=== PATIENT | male | born 1985 | race Caucasian/White ===

== ENCOUNTER 2024-07-14 11:57 | Outpatient (AMB) | payer OTHER, SELFPAY ==
--- NOTE | 2024-07-14 12:34 | AM.OFFWIN_ITS ---
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 He states that yesterday he put a new monitor on his right upper arm, and within the first hour, it was malfunctioning and not providing readings. His carlita recommended removing the monitor, which he did. Upon removing it, he noticed that the small flexible probe appeared much shorter than it should, about 3 mm shorter. He is unsure if this piece of the monitor remains in his arm. He states he can feel a small bump, but is unsure if this is related. This BG monitoring system is new for him. PCP at [facility]. [facility] Social History Patient Tobacco Use Status: Never used Tobacco Review of Systems Const All systems reviewed & are unremarkable except as noted in HPI and below Physical Exam Vital Signs: Last Vital Signs Pulse 100 07/14/24 12:40 BP 124/80 07/14/24 12:40 Pulse Ox 99 07/14/24 12:40 Oxygen Delivery Method Room Air 07/14/24 12:40 Const General: cooperative, healthy appearing, comfortable and no acute distress Limitations: no limitations HEENT Head: Yes normal to inspection Resp Effort & Inspection: normal respiratory effort Skin Other: Very small erythematous area where previous Dexcom monitor was placed, right posterior upper arm. Area palpated and no linear foreign body was identified. No surrounding warmth, erythema, rashes, or swelling. Extrem General: Yes capillary refill normal and Yes no clubbing, cyanosis or edema Psych Appearance: grossly normal Mental Status: mental status grossly normal Speech and movement: Normal speech and movement present Assessment & Plan Assessment & Plan (1) Foreign body (FB) in soft tissue: Code(s): M79.5 - Residual foreign body in soft tissue Plan: I cannot palpate the foreign body in his arm where his Dexcom had been placed. Patient is unsure if the small piece/probe from the monitor was left in skin or if it perhaps fell out. We discussed monitoring the area for infection, and if anything concerning such as pain, redness, warmth, or swelling develop, he may need abx and possible US. He will d/w his PCP as needed. All questions were answered and patient verbalizes understanding and agrees to plan. Coding Level of Care Code Est Pt Level 3 (81499) Diagnoses Foreign body (FB) in soft tissue M79.5
[2024-07-14 12:40] VITALS: BP 124/80; PULSE 100; O2SAT 99
--- OUTSIDE RECORDS SUMMARY | 2024-07-14 13:02 | XMS_ITS | Clinical Summary ---
Author Organization [facility] Address [address] [place] [address] Care Team Providers Care Gis Professor Name Role Phone Unavailable Primary Care Provider Unavailabl e Social History Tobacco Use Types Packs/Day Years Used Date Smoking Tobacco: Never Assessed Sex and Gender Information Value Date Recorded Sex Assigned at Not on file Legal Sex Male 4:22 PM EDT Gender Identity Not on file Sexual Orientation Not on file Plan of Treatment Health Maintenance Due Date Last Done Comments Hepatitis C Virus Screening 1986 HIV Screening 09/26/1999 DTaP/Tdap/Td Vaccines (1 - Tdap) 2005 Hepatitis B Vaccines (1 of 3 - 19+ 3-dose series) 2005 COVID-19 Vaccine (2023-2 5 season) 2023 HPV Vaccines Aged Out No longer eligi ble based on patient's age to complete this topic Pneumococcal Vaccine: Pediat jessica (0-5 Years) and At-Risk Patients (6 to 49 Years) Aged Out No longer eligible b ased on patient's age to complete this topic
--- OUTSIDE RECORDS SUMMARY | 2024-07-14 13:02 | XMS_ITS | Encounter Summary ---
Author Organization [employer] Address [address] [facility] 7 [place] [address] Care Team Providers Care Hospital Laboratory Technician Name Role Phone Unavailable Primary Care Provider Unavailabl e Encounter Details Date Type Department Care Team (Latest Contact Info) Description 09/10/2018 [facility] Dental, Provider, DDS Social History Tobacco Use Types Packs/Day Years Used Date Smoking Tobacco: Never Assessed Comments Unknown Sex and Gender Information Value Date Recorded Sex Assigned at Not on file Legal Sex Unknown 12/27/2021 5:37 PM EDT Gender Identity Not on file Sexual Orientation Not on file documented as of this encounter Plan of Treatment Not on file documented as of this encounter Visit Diagnoses Not on filedocumented in this encounter
--- OUTSIDE RECORDS SUMMARY | 2024-07-14 13:02 | XMS_ITS | Encounter Summary ---
Author Organization [employer] Address [address] [facility] [address] [place] [address] Care Team Providers Care Rehabilitation Manager Name Role Phone Unavailable Primary Care Provider Unavailabl e Encounter Details Date Type Department Care Team (Latest Contact Info) Description 03/16/2019 [facility] Dental, Provider, DDS Social [...]
--- OUTSIDE RECORDS SUMMARY | 2024-07-14 13:02 | XMS_ITS | Encounter Summary ---
Author Organization [employer] Address [address] [facility] [address] [place] [address] Care Team Providers Care Assistant Chief Nursing Officer Name Role Phone Unavailable Primary Care Provider Unavailabl e Encounter Details Date Type Department Care Team (Latest Contact Info) Description 03/24/2018 [facility] Dental, Provider, DDS Social [...]
--- OUTSIDE RECORDS SUMMARY | 2024-07-14 13:02 | XMS_ITS | Clinical Summary ---
Author Organization [employer] Address [address] [facility] 7t [place] [address] Care Team Providers Care Sealer Aircraft Name Role Phone Unavailable Primary Care Provider [...] Health Maintenance Due Date Last Done Comments Depression Screening 1986 Lipid Panel 1986 Alcohol/Substance Use Screening 1998 Tobacco Screening 1998 Family Planning (PISQ) 2001 DTaP/Tdap/Td Vaccines (1 - Tdap) 2005 Hepatitis B Vaccines (1 of 3 - 19+ 3-dose series) 2005 Pap Smear 09/26/2007 Cervical Cancer Screening 2016 HPV/Cotest 2016 COVID-19 Vaccine ( - 2023-2 5 season) 2023 Influenza Vaccine (#1) 2023 Zoster Vaccines (1 of 2) 2036 RSV Patients and Pa tients Aged 60 years or older (1 - 1-dose 75+ series) 2061 HIB Vaccines Aged Out No longer eligi ble based on patient's age to complete this topic HPV Vaccines Aged Out No longer eligi ble based on patient's age to complete this topic Hepatitis A Vaccines Aged Out No long er eligible based on patient's age to complete this topic IPV Vaccines Aged Out No longer eligi ble based on patient's age to complete this topic Meningococcal B Vaccine Aged Out No l onger eligible based on patient's age to complete this topic Meningococcal Vaccine Aged Out No fran kieran eligible based on patient's age to complete this topic Pneumococcal Vaccine: Pediat rics (0 to 5 Years) and At-Risk Patients (6 to 49) Years) Aged Out No longer eligible b ased on patient's age to complete this topic RSV under 20 months Aged Out No longe r eligible based on patient's age to complete this topic Rotavirus Vaccines Aged Out No longer eligible based on patient's age to complete this topic
== END 2024-07-14 13:13 | disposition home or self-care (01) ==
PROVIDERS: Visit Provider Nurse Practitioner Family
DX: M79.5 Residual foreign body in soft tissue (principal)

== ENCOUNTER → 2024-07-14 11:57 | Outpatient (BNVA) | payer OTHER, SELFPAY | DX: Z13.89 Encounter for screening for other disorder (principal) ==

== ENCOUNTER 2024-10-08 10:15 | Outpatient (AMB) | payer OTHER, SELFPAY ==
--- NOTE | 2024-10-08 10:22 | MHC.OFFVIS ---
Intake Visit Reasons: peyronies Intake Note: PT PRESENTS FOR: NEW PT PEYRONIES UROLOGY MEDICATIONS: TESTOSTERONE BLOOD THINNERS: NONE Aquarist Required: No Accompanied by: Self / Same As Patient Allergies No Known Allergies Allergy (Verified 10/08/24 10:23) PFSH Social History Patient Tobacco Use Status: Never used Tobacco Results AMB Urinalysis, Automated UA Leukoctes 0 Radha/uL Last Edit by LUIS CARLOS Sorensen on 10/08/24 10:33 UA Nitrite Negative Last Edit by Meredith Saini [facility] on 10/08/24 10:33 UA Urobilinogen 1 mg/dL Last Edit by Meredith Saini [facility] on 10/08/24 10:33 UA Protein 15 mg/dL Last Edit by Meredith Saini [facility] on 10/08/24 10:33 UA pH 6.0 Last Edit by Meredith Saini [facility] on 10/08/24 10:33 UA Blood 0 James/uL Last Edit by Meredith Saini [facility] on 10/08/24 10:33 UA Specific [place] 1.025 Last Edit by Meredith Saini [facility] on 10/08/24 10:33 UA Ketone Negative Last Edit by Meredith Saini [facility] on 10/08/24 10:33 UA Bilirubin 0 mg/dL Last Edit by Meredith Saini [facility] on 10/08/24 10:33 UA Glucose 0 mg/dL Last Edit by Meredith Saini [facility] on 10/08/24 10:33 Results Reviewed Results Reviewed: Laboratory Last Values Urine pH (Auto) 6.0 10/08/24 10:32 Specific [place] (Auto) 1.025 10/08/24 10:32 Urine Protein (Auto) 15 mg/dL 10/08/24 10:32 Glucose (UA)(Auto) 0 mg/dL 10/08/24 10:32 Urine Ketones (Auto) Negative 10/08/24 10:32 Urine Blood (Auto) 0 James/uL 10/08/24 10:32 Urine Nitrite (Auto) Negative 10/08/24 10:32 Urine Bilirubin (Auto) 0 mg/dL 10/08/24 10:32 Urine Urobilinogen (Auto) 1 mg/dL 10/08/24 10:32 Leukocyte Esterase (Auto) 0 Radha/uL 10/08/24 10:32 Assessment & Plan Assessment & Plan (1) Peyronie's disease: Code(s): N48.6 - Induration penis plastica Category: Medical Orders: Orders AMB Urinalysis Automated Today Z13.9 - Encounter for screening, unspecified Estrad Free (Tot Ultra + Free) Today N48.6 - Induration penis plastica Lutenizing Hormone Today N48.6 - Induration penis plastica Testosterone, Free/Total Today N48.6 - Induration penis plastica Follicle Stimulating Hormone Today N48.6 - Induration penis plastica US penile Today N48.6 - Induration penis plastica Medications: New tadalafil 5 mg PO DAILY 90 tabs 0RF sexual activity 90 days N48.6 - Induration penis plastica pentoxifylline ER 400 mg PO BID 180 tabs 1RF 90 days N48.6 - Induration penis plastica vitamin E (dl, acetate) 450 mg PO DAILY 90 caps 1RF 90 days N48.6 - Induration penis plastica Coding Diagnoses Peyronie's disease N48.6
--- OUTSIDE RECORDS SUMMARY | 2024-10-08 10:26 | XMS_ITS | Clinical Summary ---
Author Organization [employer] Address [address] [facility] 7t [place] [address] Care Team Providers Care Corporate Development Manager Name Role Phone Unavailable Primary Care [...] Comments Depression Screening 1986 Lipid Panel 1986 Disability Screening 1986 Alcohol/Substance Use Screening 1998 Tobacco Screening 1998 Family Planning (PISQ) 2001 HPV Vaccines (1 - 3-dose series) 2001 DTaP/Tdap/Td Vaccines (1 - Tdap) 2005 Hepatitis B Vaccines (1 of 3 - 19+ 3-dose series) 2005 Pap Smear 09/26/2007 Cervical Cancer Screening 2016 HPV/Cotest 2016 COVID-19 Vaccine ( - 2023-2 5 season) 2023 Influenza Vaccine (#1) 2024 Zoster Vaccines (1 of 2) 2036 RSV [...] Years) and At-Risk Patients (6 to 49) Years Aged Out No longer eligible b ased on patient's age to complete this topic RSV under 20 months Aged Out No longe r eligible based on patient's age to complete this topic Rotavirus Vaccines Aged Out No longer eligible based on patient's age to complete this topic
--- OUTSIDE RECORDS SUMMARY | 2024-10-08 10:26 | XMS_ITS | Clinical Summary ---
Author Organization [facility] Address [address] [place] [address] Care Team Providers Care Police Patrol Lieutenant Name Role Phone Unavailable Primary Care Provider [...] of 3 - 19+ 3-dose series) 2005 HPV Vaccines (1 - 3-dose SCD M series) 2013 COVID-19 Vaccine (2023-2 5 season) 2023 Pneumococcal Vaccine: Pediat jessica (0-5 Years) and At-Risk Patients (6 to 49 Years) Aged Out No longer eligible b ased on patient's age to complete this topic
== END 2024-10-08 11:12 | disposition home or self-care (01) ==
PROVIDERS: PCP Registered Nurse; Visit Provider Urology
DX: Z13.9 Encounter for screening, unspecified (principal)

== ENCOUNTER → 2024-10-08 10:15 | Outpatient (BNVA) | payer OTHER, SELFPAY | PROVIDERS: PCP Registered Nurse; Visit Provider Urology | DX: N48.6 Induration penis plastica (principal) | CPT/HCPCS: 81003 ==

== ENCOUNTER 2024-12-23 13:56 | Outpatient (REF) | payer OTHER, SELFPAY ==
--- OUTSIDE RECORDS SUMMARY | 2024-12-23 17:00 | XMS_ITS | Encounter Summary ---
Author Organization [employer] Address [address] [facility] [address] [place] [address] Care Team Providers Care Lining Mechanic Name Role Phone Unavailable Primary Care Provider [...]
--- OUTSIDE RECORDS SUMMARY | 2024-12-23 17:00 | XMS_ITS | Clinical Summary ---
Author Organization [employer] Address [address] [facility] [address]t [place] [address] Care Team Providers Care Supervisor Electrolytic Tinning Name Role Phone Unavailable Primary Care Provider [...] Cancer Screening 2016 HPV/Cotest 2016 COVID-19 Vaccine (1 - 2023-2 5 season) 2024 Influenza Vaccine (#1) 2024 Zoster Vaccines (1 [...]
--- OUTSIDE RECORDS SUMMARY | 2024-12-23 17:00 | XMS_ITS | Encounter Summary ---
Author Organization [employer] Address [address] [facility] [address] [place] [address] Care Team Providers Care Flume Tender Name Role Phone Unavailable Primary Care Provider [...]
--- OUTSIDE RECORDS SUMMARY | 2024-12-23 17:00 | XMS_ITS | Encounter Summary ---
Author Organization [employer] Address [address] [facility] [address] [place] [address] Care Team Providers Care Ply Cutter Name Role Phone Unavailable Primary Care Provider [...]
--- OUTSIDE RECORDS SUMMARY | 2024-12-23 17:00 | XMS_ITS | Clinical Summary ---
Author Organization [facility] Address [address] [place] [address] Care Team Providers Care Streaming Media Specialist Name Role Phone Unavailable Primary Care Provider [...] series) 2005 COVID-19 Vaccine (2023-2 5 season) 2024 HPV Vaccines (No Doses Required) Completed Pneumococcal Vaccine: Pediat jessica (0-5 Years) and At-Risk Patients (6 to 49 Years) Aged Out No longer eligible b ased on patient's age to complete this topic
[2024-12-24 04:39] LABS: Follicle Stimulating Hormone 10.2 mIU/mL (1.4-12.8)
[2024-12-28 16:58] LABS: Testosterone, Free 117.8 pg/mL (35.0-155.0)
[2025-01-09 03:24] LABS: Estradiol Free 0.79 pg/mL; Estradiol, Ultrasensitive 39 pg/mL (< OR = 29)
== END 2024-12-23 13:57 | disposition home or self-care (01) ==
LOC: HO.LAB 13:56
PROVIDERS: PCP Registered Nurse; Visit Provider Urology
DX: N48.6 Induration penis plastica (principal)
CPT/HCPCS: 36415; 82670; 82681; 83001; 83002; 84402; 84403

== ENCOUNTER 2025-01-03 13:12 | Outpatient (REF) | payer OTHER, SELFPAY ==
--- NOTE | ~2025-01-03 | US_ITS ---
EXAMINATION: US PENIS SOFT TISSUE HISTORY: N48.6 - Induration penis plastica COMPARISON: There are no prior studies available for comparison. TECHNIQUE: Grayscale imaging of the penis. Doppler exam not performed. FINDINGS: No fracture, fluid collection or soft tissue mass appreciated. There are scattered linear bright echogenic densities with acoustic shadowing suggestive of calcifications seen throughout the penis most prominent at the base. US/US penile IMPRESSION: Soft tissue calcifications. Question Peyronie's disease. Electronically signed by: Batsheva Martins MD 01/04/2025 09:21 AM EST
--- OUTSIDE RECORDS SUMMARY | 2025-01-03 15:20 | XMS_ITS | Clinical Summary ---
Author Organization [employer] Address [address] [facility] 7t [place] [address] Care Team Providers Care Vacuum Applicator Operator Name Role Phone Unavailable Primary Care Provider [...]
--- OUTSIDE RECORDS SUMMARY | 2025-01-03 15:20 | XMS_ITS | Encounter Summary ---
Author Organization [employer] Address [address] [facility] [address] [place] [address] Care Team Providers Care Railroad Operating Engineer Name Role Phone Unavailable Primary Care Provider [...]
--- OUTSIDE RECORDS SUMMARY | 2025-01-03 15:20 | XMS_ITS | Encounter Summary ---
Author Organization [email or web address] Address [address] [facility] 7 [place] [address] Care Team Providers Care Well Puller Name Role Phone Unavailable Primary Care Provider [...]
--- OUTSIDE RECORDS SUMMARY | 2025-01-03 15:20 | XMS_ITS | Encounter Summary ---
Author Organization [employer] Address [address] [facility] 7 [place] [address] Care Team Providers Care Knitting Inspector Name Role Phone Unavailable Primary Care Provider [...]
--- OUTSIDE RECORDS SUMMARY | 2025-01-03 15:20 | XMS_ITS | Clinical Summary ---
Author Organization [facility] Address [address] [place] [address] Care Team Providers Care Traffic Control Operator Name Role Phone Unavailable Primary Care [...]
== END 2025-01-03 13:13 | disposition home or self-care (01) ==
LOC: HO.US 13:12
PROVIDERS: PCP Registered Nurse; Visit Provider Urology
DX: N48.6 Induration penis plastica (principal)
CPT/HCPCS: 76857

== ENCOUNTER → 2025-01-03 13:14 | Outpatient (BNV) | payer OTHER, SELFPAY | PROVIDERS: PCP Registered Nurse; Visit Provider Radiology Diagnostic Radiology | DX: N48.6 Induration penis plastica (principal); N48.89 Other specified disorders of penis | CPT/HCPCS: 76857 ==

== ENCOUNTER 2025-01-07 15:02 | Outpatient (AMB) | payer OTHER, SELFPAY ==
--- NOTE | 2025-01-07 15:13 | MHC.OFFVIS ---
Intake Visit Reasons: 3m/US/labs Intake Note: Patient Is Present for Ultrasound/Labs Results Urology Med: Pentoxifylline, Tadalafil, Vitamin E Antibiotic Allergy: None Blood Thinner: None 12/23/2024- Testosterone- 760 LH- 8.4 Penile Vascular Ultrasound- 01/03/25 Decorative Cutting Machine Tender Required: No Allergies No Known Allergies Allergy (Verified 01/07/25 15:15) HPI Comments Details: Silver is a pleasant male. He is a patient of . Seen for the following urologic conditions - Peyronie's disease Has photos Proximally 75 degree dorsal bend Palpable calcification at base of penis Discussed penile plication Normal labs Review in six-month Peyronie's disease Significant penile curvature Has been present for number of years Correlates back to penile trauma On exam has a thickening of the dorsal base that extends significantly down the shaft of the penis Able to obtain erection however has substantial deformity Significant background of diabetes longstanding insulin-dependent Pertinent information regarding Peyronie's disease provided Labs 12/18 T 760, LH 8.4 [facility] Social History Patient Tobacco Use Status: Never used Tobacco Review of Systems Const Denies chills and Denies fever(s) Card Reports no additional complaints and Denies syncope Resp Denies cough GI Denies abdominal pain and Denies heartburn Reports as per HPI and Denies change in libido Neuro Denies syncope Psych Denies change in libido Endo Denies change in libido Physical Exam Const General: cooperative, healthy appearing, comfortable and no acute distress Orientation/consciousness: patient oriented x3 HEENT Face and sinus: Yes normal facial exam Mouth: moist mucous membranes Neck Neck: Yes normal visual inspection, Yes full ROM and Yes trachea midline Chest Chest palpation & inspection: normal inspection of the chest Resp Effort & Inspection: normal respiratory effort, able to speak in complete sentences and no respiratory distress GI Inspection: Yes normal to inspection Back/Spine/Pelvis Cervical Spine: normal cervical lordosis Thoracic/Lumbar Spine: thoracic and lumbar spine normal to inspection Skin General skin exam: no rashes or lesions noted Neuro General: patient oriented x3, gait normal, tone normal and moves all extremities Extrem General: Yes normal to inspection and Yes capillary refill normal Assessment & Plan Assessment & Plan (1) Peyronie's disease: Code(s): N48.6 - Induration penis plastica Category: Medical Plan Six-month follow-up Patient Instructions: This note is constructed using voice recognition software. While every effort has been made to ensure accuracy medical transcriptionist errors may have been included. Imaging studies, laboratory and physical exam results were discussed and reviewed in detail. No major barriers to patient understanding were identified. An opportunity to ask questions regarding the treatment plan was provided. All questions were answered. The patient expressed understanding and agreement with the above treatment plan. The patient is aware they should contact our office by phone for worsening of their current condition or the appearance of new urologic symptoms. Compliance is encouraged with any medications and followup testing that is ordered. It is a privilege to participate in the urologic care of your patient. If you have any questions or concerns regarding treatment for the above conditions, or other urologic issues, please do not hesitate to contact me. The office telephone contact is [phone]. Sincerely, Dr Trevon Correia MD, [facility] - Urology Compassionate Specialist Care for the Genitourinary System Coding Level of Care Code Est Pt Level 3 (38783) Complex EM visit Add On G2211 Diagnoses Peyronie's disease N48.6
--- OUTSIDE RECORDS SUMMARY | 2025-01-07 23:06 | XMS_ITS | Encounter Summary ---
Author Organization [employer] Address [address] [facility] 7 [place] [address] Care Team Providers Care Cushion Maker Name Role Phone Unavailable Primary Care Provider [...]
--- OUTSIDE RECORDS SUMMARY | 2025-01-07 23:06 | XMS_ITS | Encounter Summary ---
Author Organization [employer] Address [address] [facility] [address] [place] [address] Care Team Providers Care Sales Stock Associate Name Role Phone Unavailable Primary Care Provider [...]
--- OUTSIDE RECORDS SUMMARY | 2025-01-07 23:06 | XMS_ITS | Clinical Summary ---
Author Organization [employer] Address [address] [facility] 7t [place] [address] Care Team Providers Care Security Control Assessor Name Role Phone Unavailable Primary Care Provider [...]
--- OUTSIDE RECORDS SUMMARY | 2025-01-07 23:07 | XMS_ITS | Clinical Summary ---
Author Organization [facility] Address [address] [place] [address] Care Team Providers Care Bus Driver School Name Role Phone Unavailable Primary Care Provider [...]
--- OUTSIDE RECORDS SUMMARY | 2025-01-07 23:07 | XMS_ITS | Encounter Summary ---
Author Organization [employer] Address [address] [facility] [address] [place] [address] Care Team Providers Care Cable Systems Installer Name Role Phone Unavailable Primary Care Provider [...]
== END 2025-01-07 15:24 | disposition home or self-care (01) ==
LOC: HO.HUSH 15:03
PROVIDERS: PCP Registered Nurse; Visit Provider Urology
DX: N48.6 Induration penis plastica (principal)
CPT/HCPCS: 99213